=== PATIENT | male | born 1965 | race Caucasian/White ===

== ENCOUNTER → 2018-02-24 10:11 | Outpatient (CLI) | payer BC, SELFPAY ==
[2018-02-24 12:43] LABS: Absolute Lymphocyte Count 1.44 X10^3/ul (0.83-4.51); Absolute Neutrophil Count 3.9 X10^3/uL (2.0-7.7); Basophil# 0.01 X10^3/uL; Basophil% 0.2 % (0-1); Eosinophil# 0.07 X10^3/uL; Eosinophils% 1.2 % (0-5); Hematocrit 46.1 % (40-54); Hemoglobin 15.6 g/dl (13.0-16.5); Lymphocyte # 1.44 X10^3/ul (4.0); Lymphocyte % 24.5 % (19-41); Mean Corp Hgb Conc 33.8 g/gl (32-36); Mean Corpuscular Hgb 28.8 pg (27.0-32.0); Mean Corpuscular Volume 85.1 fL (80-94); Mean Platelet Vol. 11.1 fl (6.2-12.0); Monocyte# 0.46 X10^3/uL; Monocyte% 7.8 % (0-10); Neutrophil # 3.88 X10^3/uL (2.7-7.7); Neutrophil % 66.1 % (47-70); Platelet Count 209 K/mm3 (150-450); RBC Distribution Width SD 40.5 fl (35.1-43.9); Red Blood Count 5.42 M/mm3 (4.6-6.2); White Blood Count 5.9 K/mm3 (4.4-11.0)
[2018-02-24 12:58] LABS: POSITIVE COUNT NO; POSITIVE DIFFERENTIAL NO; POSITIVE MORPHOLOGY NO
[2018-02-24 13:12] LABS: AST(SGOT) 27 U/L (15-37); Alanine Aminotransfer ALT/SGPT 31 U/L (16-61); Albumin, Serum 3.6 g/dL (3.2-5.0); Alkaline Phosphatase 97 U/L (45-117); Anion Gap 8 (5-15); BUN 22 mg/dL (7-18); BUN/Creat Ratio 25.5 RATIO (10-20); Calcium,Total 8.8 mg/dL (8.5-10.1); Chloride 109 mmol/L (98-107); Cholesterol 215 mg/dL (200); Creatinine, Serum 0.86 mg/dL (0.70-1.30); EST Glomerular Filtration Rate 98 mL/min (>60); Est Glom Filt Rate - Afr Amer 118 mL/min (>60); Globulin 3.5 g/dL (2.2-4.2); Glucose 95 mg/dL (74-106); High Density Lipoprotein 56 mg/dL; Potassium 4.5 mmol/L (3.5-5.1); Protein, Total 7.1 g/dL (6.4-8.2); Sodium Level 143 mmol/L (136-145); Triglycerides 102 mg/dL; Very Low Density Lipoprotein 20 mg/dL (5-40)
== END ==
PROVIDERS: Family Provider Internal Medicine; PCP Internal Medicine; Visit Provider Nurse Practitioner Family
DX: I10 Essential (primary) hypertension (principal)
CPT/HCPCS: 36415; 80053; 80061; 85025

== ENCOUNTER → 2018-02-27 13:06 | Outpatient (CLI) | payer BC, SELFPAY ==
--- NOTE | 2018-02-26 | LES_PTH ---
PATIENT: ADAMA BOYLE LOC: [facility] U#:[id number] AGE/SX: 59/M ROOM: RE02/27/[address]: Dr. Adama Suarez MD : [id number] BED: DIS: SPEC #: [id number] RECD: 02/27/18 14:39 STATUS: [place] #: [id number] CECIL: 02/26/18 00:[address]: Adama Suarez DEPT: SURGICAL PATHOLOGY RECD BY: Balbir Chapin ENTERED: 02/27/18 14:39 SP TYPE: Lesion OTHR DR: Dr. Ximena Benoit MD Tissues: Skin of back, NOS Procedures: Surgery Specimen Level III HEADER OPERATION: Excision upper mid back mass PRE-OP DIAGNOSIS: Upper mid back mass TISSUE SUBMITTED: Upper mid back tissue MICROSCOPIC DIAGNOSIS Upper mid back tissue, excisional biopsy: Epidermal inclusion cyst. ALLISON:pito 02/28/18 MICROSCOPIC DESCRIPTION Slides are reviewed. GROSS DESCRIPTION Received in fixative is one container labeled with the patient's name and designated upper mid back. The specimen consists of a piece of skin with underlying tissue. The skin ellipse measures 5 x 1.5 cm and the underlying tissue measures 4 x 3.5 x 2.5 cm. The specimen is inked, serially sectioned and reveals a cyst in the underlying tissue measuring 3 cm in greatest dimension. The cyst is filled with weaver-brown cheesy material. Biomedical Engineering Professor sections are submitted in two cassettes. / SJ:pito 02/27/18 TC:5 CPT: 92100
== END ==
PROVIDERS: Family Provider Internal Medicine; PCP Internal Medicine; Visit Provider Surgery
DX: R22.2 Localized swelling, mass and lump, trunk (principal)
CPT/HCPCS: 88304; 88305

== ENCOUNTER → 2019-06-29 09:05 | Outpatient (CLI) | payer OTHER, SELFPAY ==
[2019-06-29 08:52] VITALS: BMI 24.4
[2019-06-29 13:03] LABS: Absolute Neutrophil Count 4.8 X10^3/uL (2.0-7.7); Basophil# 0.03 X10^3/uL; Basophil% 0.4 % (0-1); Eosinophil# 0.07 X10^3/uL; Hematocrit 47.4 % (40-54); Hemoglobin 15.4 g/dL (13.0-16.5); Lymphocyte % 20.6 % (19-41); Mean Corp Hgb Conc 32.5 g/dL (32-36); Mean Corpuscular Hgb 28.4 pg (27.0-32.0); Mean Corpuscular Volume 87.5 fL (80-94); Mean Platelet Vol. 11.1 fl (6.2-12.0); Monocyte# 0.47 X10^3/uL; Monocyte% 6.9 % (0-10); NRBC Flagged by Analyzer 0 % (0-5); Neutrophil # 4.78 X10^3/uL (2.7-7.7); Neutrophil % 70.7 % (47-70); Platelet Count 237 K/mm3 (150-450); RBC Distribution Width CV 12.8 % (11.6-14.6); Red Blood Count 5.42 M/mm3 (4.6-6.2); White Blood Count 6.8 K/mm3 (4.4-11.0)
[2019-06-29 13:13] LABS: ALB/GLOB Ratio 0.9 RATIO (0.9-2.4); AST(SGOT) 22 U/L (15-37); Alanine Aminotransfer ALT/SGPT 40 U/L (16-61); Albumin, Serum 3.6 g/dL (3.2-5.0); Alkaline Phosphatase 103 U/L (45-117); Anion Gap 4 (5-15); BUN 18 mg/dL (7-18); BUN/Creat Ratio 18.8 RATIO (10-20); Calcium,Total 9.4 mg/dL (8.5-10.1); Chloride 109 mmol/L (98-107); Cholesterol 212 mg/dL (200); Creatinine, Serum 0.96 mg/dL (0.70-1.30); EST Glomerular Filtration Rate 87 mL/min (>60); Est Glom Filt Rate - Afr Amer 105 mL/min (>60); Globulin 3.8 g/dL (2.2-4.2); Glucose 119 mg/dL (74-106); High Density Lipoprotein 54 mg/dL; Potassium 4.4 mmol/L (3.5-5.1); Protein, Total 7.4 g/dL (6.4-8.2); Sodium Level 140 mmol/L (136-145); Triglycerides 141 mg/dL; Very Low Density Lipoprotein 28 mg/dL (5-40)
== END ==
LOC: BIMLAB 09:06
PROVIDERS: Family Provider Internal Medicine; PCP Internal Medicine; Visit Provider Internal Medicine
DX: I10 Essential (primary) hypertension (principal); E78.5 Hyperlipidemia, unspecified; Z72.0 Tobacco use
CPT/HCPCS: 36415; 80053; 80061; 85025

== ENCOUNTER → 2021-03-02 09:13 | Outpatient (CLI) | payer BC, SELFPAY ==
[2021-03-02 12:37] LABS: Absolute Lymphocyte Count 1.39 X10^3/uL (0.83-4.51); Basophil# 0.01 X10^3/uL; Basophil% 0.2 % (0-1); Eosinophil# 0.04 X10^3/uL; Eosinophils% 0.7 % (0-5); Hematocrit 47.4 % (40-54); Hemoglobin 15.8 g/dL (13.0-16.5); Lymphocyte # 1.39 X10^3/ul (0.83-4.51); Lymphocyte % 23.2 % (19-41); Mean Corp Hgb Conc 33.3 g/dL (32-36); Mean Corpuscular Hgb 29.4 pg (27.0-32.0); Mean Corpuscular Volume 88.3 fL (80-94); Mean Platelet Vol. 11.1 fl (6.2-12.0); Monocyte% 8.4 % (0-10); NRBC Flagged by Analyzer 0 % (0-5); Neutrophil # 4.03 X10^3/uL (2.7-7.7); Neutrophil % 67.3 % (47-70); Platelet Count 212 K/mm3 (150-450); RBC Distribution Width CV 13.2 % (11.6-14.6); RBC Distribution Width SD 42.7 fl (35.1-43.9); Red Blood Count 5.37 M/mm3 (4.6-6.2)
[2021-03-02 12:51] LABS: AST(SGOT) 21 U/L (15-37); Alanine Aminotransfer ALT/SGPT 38 U/L (16-61); Albumin, Serum 3.8 g/dL (3.2-5.0); Alkaline Phosphatase 96 U/L (45-117); Anion Gap 4 (5-15); BUN 15 mg/dL (7-18); BUN/Creat Ratio 16.9 RATIO (10-20); Calcium,Total 9.2 mg/dL (8.5-10.1); Chloride 107 mmol/L (98-107); Cholesterol 255 mg/dL (200); Creatinine, Serum 0.89 mg/dL (0.70-1.30); EST Glomerular Filtration Rate 94 mL/min (>60); Est Glom Filt Rate - Afr Amer 114 mL/min (>60); Globulin 3.9 g/dL (2.2-4.2); Glucose 105 mg/dL (74-106); High Density Lipoprotein 65 mg/dL; Potassium 4.5 mmol/L (3.5-5.1); Protein, Total 7.7 g/dL (6.4-8.2); Sodium Level 140 mmol/L (136-145); Triglycerides 174 mg/dL; Very Low Density Lipoprotein 35 mg/dL (5-40)
== END ==
LOC: BIMLAB 09:14
PROVIDERS: PCP Internal Medicine; Referring Provider Internal Medicine; Visit Provider Internal Medicine
DX: I10 Essential (primary) hypertension (principal)
CPT/HCPCS: 36415; 80053; 80061; 85025

== ENCOUNTER → 2021-11-27 | Outpatient (CLI) | payer BC, SELFPAY ==
[2021-11-27 12:12] LABS: Anion Gap 3 (5-15); BUN 21 mg/dL (7-18); BUN/Creat Ratio 21.7 RATIO (10-20); Calcium,Total 8.5 mg/dL (8.5-10.1); Chloride 112 mmol/L (98-107); Creatinine, Serum 0.97 mg/dL (0.70-1.30); EST Glomerular Filtration Rate 85 mL/min (>60); Est Glom Filt Rate - Afr Amer 102 mL/min (>60); Glucose 100 mg/dL (74-106); Potassium 4.6 mmol/L (3.5-5.1); Sodium Level 141 mmol/L (136-145)
== END | disposition home or self-care (01) ==
LOC: BIMLAB 08:27
PROVIDERS: PCP Internal Medicine; Referring Provider Internal Medicine; Visit Provider Internal Medicine
DX: I10 Essential (primary) hypertension (principal)
CPT/HCPCS: 36415; 80048

== ENCOUNTER → 2022-11-19 | Outpatient (CLI) | payer BC, SELFPAY ==
[2022-11-19 12:03] LABS: Absolute Neutrophil Count 4.5 X10^3/uL (2.0-7.7); Basophil# 0.01 X10^3/uL; Basophil% 0.2 % (0-1); Eosinophil# 0.08 X10^3/uL; Eosinophils% 1.3 % (0-5); Hematocrit 47.6 % (40-54); Hemoglobin 15.9 g/dL (13.0-16.5); Lymphocyte % 20.8 % (19-41); Mean Corp Hgb Conc 33.4 g/dL (32-36); Mean Corpuscular Hgb 29.4 pg (27.0-32.0); Mean Platelet Vol. 10.7 fl (6.2-12.0); Monocyte# 0.38 X10^3/uL; Monocyte% 6.1 % (0-10); NRBC Flagged by Analyzer 0 % (0-5); Neutrophil # 4.46 X10^3/uL (2.7-7.7); Neutrophil % 71.1 % (47-70); Platelet Count 213 K/mm3 (150-450); RBC Distribution Width CV 13.2 % (11.6-14.6); Red Blood Count 5.41 M/mm3 (4.6-6.2); White Blood Count 6.3 K/mm3 (4.4-11.0)
[2022-11-19 12:37] LABS: ALB/GLOB Ratio 1.1 RATIO (0.9-2.4); AST(SGOT) 29 U/L (15-37); Alanine Aminotransfer ALT/SGPT 48 U/L (16-61); Albumin, Serum 3.8 g/dL (3.2-5.0); Alkaline Phosphatase 94 U/L (45-117); Anion Gap 4 (5-15); BUN 14 mg/dL (7-18); Calcium,Total 9.1 mg/dL (8.5-10.1); Chloride 110 mmol/L (98-107); Cholesterol 208 mg/dL (200); Creatinine, Serum 0.78 mg/dL (0.70-1.30); EST Glomerular Filtration Rate 108 mL/min (>60); Est Glom Filt Rate - Afr Amer 131 mL/min (>60); Globulin 3.4 g/dL (2.2-4.2); Glucose 82 mg/dL (74-106); High Density Lipoprotein 67 mg/dL; Potassium 4.9 mmol/L (3.5-5.1); Protein, Total 7.2 g/dL (6.4-8.2); Sodium Level 141 mmol/L (136-145); Triglycerides 85 mg/dL; Very Low Density Lipoprotein 17 mg/dL (5-40)
== END | disposition home or self-care (01) ==
LOC: BIMLAB 09:10
PROVIDERS: PCP Internal Medicine; Visit Provider Internal Medicine
DX: I10 Essential (primary) hypertension (principal)
CPT/HCPCS: 36415; 80053; 80061; 85025

== ENCOUNTER 2024-06-01 10:43 | Emergency (ER) | payer BC, SELFPAY ==
[2024-06-01 10:44] VITALS: BP 195/98; PULSE 66; RESP 17; TEMP 36.7; O2SAT 97; BMI 21.4
[2024-06-01] MEDS: Ipratropium/Albuterol Sulfate 3 ML AMPUL.NEB INHALATION (11:11)
[2024-06-01 11:12] VITALS: PULSE 72; RESP 16; O2SAT 93
[2024-06-01] MEDS: predniSONE 20 MG Tablet 60 MG PO (11:17)
[2024-06-01] MEDS: Albuterol 2.5 MG/3 ML VIAL.NEB. INHALATION ×3 (11:17→12:05)
[2024-06-01 11:18] VITALS: O2SAT 94
[2024-06-01 11:20] LABS: Absolute Lymphocyte Count 0.69 X10^3/uL (0.83-4.51); Absolute Neutrophil Count 11.1 X10^3/uL (2.0-7.7); Basophil# 0.03 X10^3/uL; Basophil% 0.2 % (0-1); Eosinophil# 0.05 X10^3/uL; Eosinophils% 0.4 % (0-5); Hemoglobin 14.2 g/dL (13.0-16.5); Lymphocyte # 0.69 X10^3/ul (0.83-4.51); Lymphocyte % 5.5 % (19-41); Mean Corpuscular Hgb 28.4 pg (27.0-32.0); Monocyte# 0.61 X10^3/uL; Monocyte% 4.9 % (0-10); NRBC Flagged by Analyzer 0 % (0-5); Neutrophil # 11.05 X10^3/uL (2.7-7.7); Neutrophil % 88.5 % (47-70); Platelet Count 246 K/mm3 (150-450); RBC Distribution Width SD 39.9 fl (35.1-43.9); White Blood Count 12.5 K/mm3 (4.4-11.0)
[2024-06-01] MEDS: Acetaminophen 325 MG Tablet 650 MG PO (11:25)
[2024-06-01 11:35] LABS: ALB/GLOB Ratio 0.6 RATIO (0.9-2.4); AST(SGOT) 9 U/L (15-37); Alanine Aminotransfer ALT/SGPT 12 U/L (16-61); Alkaline Phosphatase 88 U/L (45-117); Anion Gap 6 (5-15); BUN 13 mg/dL (7-18); Calcium,Total 9.4 mg/dL (8.5-10.1); Chloride 108 mmol/L (98-107); Creatinine, Serum 1.08 mg/dL (0.70-1.30); EST Glomerular Filtration Rate 74 mL/min (>60); Est Glom Filt Rate - Afr Amer 89 mL/min (>60); Estimated Creatinine Clearance 73.66 ml/min; Globulin 4.7 g/dL (2.2-4.2); Glucose 132 mg/dL (74-106); Protein, Total 7.7 g/dL (6.4-8.2); Sodium Level 138 mmol/L (136-145)
--- NOTE | 2024-06-01 12:00 | RAD_ITS ---
STUDY: X-RAY CHEST REASON FOR EXAM: Male, 58 years old. Productive cough, expiratory wheezing, rales right TECHNIQUE: Single PA view of the chest. COMPARISON: None. FINDINGS: EKG electrodes are seen. Focal infiltrate in the posterior medial segment of the right lower lobe. There is no demonstrated pleural abnormality. Normal size heart. Normal mediastinum and rani. Normal visualized pulmonary arteries. There is atherosclerotic tortuosity of the aortic arch and descending thoracic aorta. Normal visualized thoracic spine. Normal visualized ribs, clavicles, and shoulders. There is no demonstrated abnormality of the visualized soft tissue structures of the upper abdomen. RAD/Chest PA and Lateral IMPRESSION: Focal infiltrate in the posterior medial segment of the right lower lobe. Electronically Signed: Tye Harper MD at 12:23 EST ,
[2024-06-01 12:07] VITALS: PULSE 73; RESP 24; O2SAT 91
--- NOTE | 2024-06-01 12:15 | ED.VIS.DYS ---
HPI History of Present Illness Chief Complaint: Cough Detail of Chief Complaint: Cough that is productive of white-colored sputum. He has been ill for michelle Informant: patient and spouse/S.O. Onset/Context/Timing Onset: Days Context: sudden Timing: Continuous and Waxes and wanes Quality: Positive for Dyspnea on exertion and Wheezing; Negative for Orthopnea or PND Current Severity: Mild Maximum Severity: Severe Worsened by: Nothing and Coughing Relieved by: Nothing Associated Symptoms cough, rhinorrhea, fever, sore throat, chills and white sputum; Negative for post nasal drip, ear pain, subjective, sweats, clear sputum, yellow sputum or green sputum Chest Pain: Positive for None Narrative Narrative: Patient is a 58-year-old male. He has history of COPD. He states he quit smoking on Saturday. He has had documented fever. He does complain of slight headache. He has had nasal congestion. He denies change in vision. He denies ringing in his ears or decreased hearing. He denies inability to swallow liquids or solids. He denies chest discomfort. He has no history of VTE. Denies leg pain, swelling discoloration. He denies diarrhea. He has had nausea and vomiting. He denies rash. PE Risk Factors: Negative for Cancer, OCP + Smoking + > 35, Prior DVT or PE, Recent immobilization, Recent surgery or Recent travel Prior similar symptoms: Yes Recent Illness/Hospitalization: Yes [facility] Medical History Health care maintenance HTN (hypertension) Seasonal allergies Sebaceous cyst Home Medications ?Medication ?Instructions ?Recorded ?Last Taken ?Type epinephrine 0.3 mg/0.3 mL 0.3 mg (0.3 mL) IM Q5-15M PRN 04/04/20 Unknown Rx injection, auto-injector (EpiPen hypersensitivity reaction #2 ea 2-Brice) naproxen 500 mg tablet 500 mg PO BID PRN pain #90 tabs 08/11/20 Unknown Rx amlodipine 10 mg tablet 10 mg PO QDAY #90 tabs 09/04/22 Unknown Rx valsartan 160 mg tablet 160 mg PO DAILY #90 tabs 11/19/22 Unknown Rx prednisone 20 mg tablet 60 mg (3 x 20 mg) PO DAILY #15 06/01/24 Unknown Rx TABLETS Allergy/AdvReac Type Severity Reaction Status Date / Time bee venom protein (honey bee) Allergy Severe swelling Verified 06/01/24 10:46 suture Allergy Swelling Verified 06/01/24 10:46 nickel AdvReac Mild Rash Verified 06/01/24 10:46 Family History Mother Hypertension Diabetes CVA (cerebral vascular accident) Father Colon cancer Heart disease Surgical History History of removal of cyst Social History adopted: No household members: significant other and other details: guardians of grandkids current occupational status: employed current occupation: driver courier pets and animals: No Smoking Status: Current every day smoker tobacco type: cigarettes second hand exposure: No quit status: considering quitting alcohol intake: current details: weekend beer use substance use type: does not use caffeine: Yes Type: coffee Number of servings: 6 what type of physical activity do you participate in: walking seatbelt use: always do you feel safe at home: Yes ROS ROS ED Constitutional Constitutional ED: Reports chills and fever(s); Denies sweats Eyes Eyes: Denies blurry vision, change in vision or diplopia ENT ENT ED: Reports rhinorrhea and sore throat; Denies ear pain Cardiovascular Cardiovascular: Denies chest pain, orthopnea, palpitations or paroxysmal nocturnal dyspnea Respiratory/Chest Respiratory/Chest: Reports cough, dyspnea and sputum; Denies dyspnea on exertion, orthopnea or paroxysmal nocturnal dyspnea Gastrointestinal Gastrointestinal: Reports vomiting; Denies abdominal pain, diarrhea or nausea Genitourinary Genitourinary ED: Denies dysuria or hematuria Musculoskeletal Musculoskeletal: Reports arthralgias and myalgias; Denies back pain or neck pain Integumentary Denies rash Neurologic Neurologic: Denies headache(s), paresthesias or weakness Psychiatric Psychiatric: Denies anxiety or depression Endocrine Endocrinology: Denies cold intolerance or heat intolerance Hematologic/Lymphatic Hematologic/Lymphatic: Denies easy bleeding or easy bruising EXAM Physical Exam Const Vital Signs: 06/01/24 10:44 06/01/24 11:12 06/01/24 11:12 Temperature 98.1 F Temperature Source Temporal Pulse Rate 66 72 Respiratory Rate 17 16 Respiratory Depth Respiratory Pattern Blood Pressure 195/98 H Blood Pressure Mean 130 Pulse Ox 97 93 Oxygen Delivery Method Room Air Room Air 06/01/24 11:18 06/01/24 12:07 06/01/24 12:07 Temperature Temperature Source Pulse Rate 73 Respiratory Rate 24 H Respiratory Depth Normal Respiratory Pattern Normal Blood Pressure Blood Pressure Mean Pulse Ox 91 Oxygen Delivery Method Room Air Room Air Positive well nourished and well developed Constitutional Narrative: Patient appears ill. He has a jacket wrapped around him. Vital signs are marked for an elevated blood pressure. He is slightly tachypneic after treatment. Pulse ox has decreased slightly after treatment which would represent a paradoxical hypoxia. General Appearance ED: well developed; Negative for pallor HEENT Reports moist mucous membranes HEENT Narrative: Ears normal. Nares patent. Posterior pharynx is normal. Patient did have significant tenderness to percussion of his forehead. Eyes PERRL and EOMs intact bilaterally General Eye ED: Negative for pale conjunctiva or scleral icterus Neck no lymphadenopathy, supple and no meningeal signs General: Negative for tenderness Resp normal respiratory effort and No clear to auscultation bilaterally Resp Narrative: Breath sounds noted bilaterally and symmetric. Auscultation: wheezes expiratory wheezes, scattered wheezes and throughout and diminished lung sounds bilateral Cardio regular rate, regular rhythm, S1 normal heart sound, S2 normal heart sound and no murmurs GI non-tender, non-distended and no masses Auscultation: normoactive bowel sounds Back/Spine no CVA tenderness Extremity Extremity Narrative: There is no asymmetry, swelling, discoloration, leg vein distention, palpable cords or tenderness along the distribution of the deep venous system. General Extremety ED: Negative for edema or tenderness General Extremity: Negative for edema Neuro oriented x3 and CN's II-XII intact bilaterally Neuro Narrative: Patient is awake. [place] Coma Scale: document GCS findings Spontaneous Obeys Commands Oriented 15 Psych mental status grossly normal Skin no wounds and skin turgor normal General Skin Exam: Negative for jaundice or pallor MDM MDM MDM Narrative Medical decision making narrative: Differential diagnosis is viral upper restaurant infection, pneumonia, patient is wheezing. This may also represent exacerbation of undiagnosed COPD since he has been a smoker for some time. History and physical are not consistent with PE/DVT. Patient did have a rise in his temperature and was treated with Tylenol. Verbal order was given to nursing staff. Patient was treated initially with DuoNeb and albuterol. He also was given 60 mg of prednisone since he is wheezing. History & Record Review Discussion w/independent historian: Patient Additional record(s) reviewed:: Prior outpatient record (Sebaceous cyst removed by Dr. Jefferson Suarez) and Prior ED visit (Last ER visit was June 2017 for cervical pain. He did undergo surgery.) Lab Data Attestation: I reviewed the patient's lab results. Lab results narrative: White count is elevated 12.5 thousand with slight shift. H&H and indices are normal. Comprehensive metabolic panel reveals a glucose of 132 with a normal CO2 anion gap. Labs: Laboratory Results - last 24 hr 06/01/24 11:15 WBC 12.5 H RBC 5.00 Hgb 14.2 Hct 43.0 MCV 86.0 MCH 28.4 MCHC 33.0 RDW Std Deviation 39.9 RDW Coeff of Олег 13.0 Plt Count 246 MPV 10.0 Immature Gran % (Auto) 0.500 Neut % (Auto) 88.5 H Lymph % (Auto) 5.5 L [place] % (Auto) 4.9 Eos % (Auto) 0.4 Baso % (Auto) 0.2 Absolute Neuts (auto) 11.1 H Absolute Lymphs (auto) 0.69 L Nucleated RBC % 0 Sodium 138 Potassium 4.0 Chloride 108 H Carbon Dioxide 25.0 Anion Gap 6 BUN 13 Creatinine 1.08 Estim Creat Clear Calc 73.66 Est GFR (MDRD) Af Amer 89 Est GFR (MDRD) Non-Af 74 BUN/Creatinine Ratio 12.0 Glucose 132 H Calcium 9.4 Total Bilirubin 0.60 AST 9 L ALT 12 L Alkaline Phosphatase 88 Total Protein 7.7 Albumin 3.0 L Globulin 4.7 H Albumin/Globulin Ratio 0.6 L Radiography Chest X-Ray - ED: 2 View (The film was lordotic. There may be slight increased fullness in the right hilar region. There is no effusion or pneumothorax noted. There is no evidence of congestive heart failure. Osseous structures unremarkable.) and Read by ED Physician Diagnostic Testing: Clinical Impression(s) from Imaging Studies Chest X-Ray 06/01/24 12:00 IMPRESSION: Focal infiltrate in the posterior medial segment of the right lower lobe. Electronically Signed: Tye Harper MD at 12:23 EST , Rhythm Strip Rhythm Strip: Sinus Rhythm Rate: 68 Ectopy: None Differential Diagnosis Chest pain/SOB: pulmonary embolism Reason(s) PE less likely: Positive for Well's <3, not tachycardic, not hypoxic and Other (History is consistent with infectious etiology.), pneumonia Reason(s) pneumonia less likely: Positive for no infiltrate on CXR and other (Negative for COVID, RSV and influenza, rapid antigen at outside facility), aortic dissection Reason(s) Aortic dissection less likely:: Positive for normal vascular exam, normal neurological exam, no significant risk factors for dissection, no widened mediastinum on CXR, pain not sudden onset, no ripping/tearing pain, no pain to back and other (Presentation consistent with infectious process), CHF Reason(s) CHF less likely: Positive for no significant peripheral edema, no orthopnea, no evidence of fluid overload on CXR and BtNP not significantly elevated over normal/baseline (BNP machine apparently is not working.) and COPD Reason(s) COPD less likely: Positive for no tachypnea and no conversational dyspnea Treatment and Re-Evaluation :: Patient was treated with DuoNeb and 2 albuterol treatments. Patient was prescribed albuterol solution since 2 children use a nebulizer. Comments:: Patient and were made aware of results. He was discharged prescription for prednisone. He also was given a work excuse. Discharge Plan Triage Chief Complaint: Cough ED Provider: Tanner Narvaez Dx/Rx/DC Orders Clinical Impression: Bronchitis, Acute bronchospasm, Fever, Elevated blood-pressure reading without diagnosis of hypertension Instructions: ED Bronchitis with Wheezing (Adult), ED Hypertension, To Be Confirmed Prescriptions: New prednisone 20 mg tablet 60 mg PO DAILY Qty: 15 0RF No Action epinephrine [EpiPen 2-Brice] 0.3 mg/0.3 mL auto-injector 0.3 mg IM Q5-15M PRN (Reason: hypersensitivity reaction) Qty: 2 2RF Rx Instructions: do not exceed 3 doses per episode naproxen 500 mg tablet 500 mg PO BID PRN (Reason: pain) Qty: 90 0RF valsartan 160 mg tablet 160 mg PO DAILY Qty: 90 1RF amlodipine 10 mg tablet 10 mg PO QDAY Qty: 90 1RF Stand Alone Forms: ED Work / School Excuse Primary Care Provider: Ximena Benoit Referrals: Ximena Benoit MD [Primary Care Provider] - Activity Restrictions/Additional Instructions: You should call your doctor to have blood pressure reassessed in 2 weeks. Print Language: Chilean Disposition Disposition: Home, Self Care
[2024-06-01 12:58] VITALS: BP 145/75; PULSE 72; RESP 20; O2SAT 97
== END 2024-06-01 13:12 | disposition home or self-care (01) ==
PROVIDERS: Emergency Provider Emergency Medicine; PCP Internal Medicine; Visit Provider Emergency Medicine
DX: J40 Bronchitis, not specified as acute or chronic (principal); J44.9 Chronic obstructive pulmonary disease, unspecified; J98.01 Acute bronchospasm; F17.210 Nicotine dependence, cigarettes, uncomplicated; R03.0 Elevated blood-pressure reading, without diagnosis of hypertension; R50.9 Fever, unspecified
CPT/HCPCS: 71046; 80053; 85025; 94640; 94668; 99284; A4216